=== PATIENT | male | born 1960 | race Caucasian/White ===

== ENCOUNTER 2017-09-24 15:13 | Emergency (ER) | payer BC ==
[~2017-09-24] VITALS: Ht 167.6 cm; Wt 110.0 kg
[2017-09-24 15:21] VITALS: TEMP 37.1; Ht 167.6 cm; Wt 110.0 kg
[2017-09-24] MEDS ORDERED: SODIUM CHLORIDE 0.9% 1000ML 1,000 ML IV STA (15:28)
--- NOTE | 2017-09-24 15:29 | EMERGENCY ROOM VISIT NOTE ---
History Report prepared by Sami: Alena Schmitz Under the Supervision of: Dr. Radha Miller D.O. First contact with patient: 15:12 Stated Complaint: MHID History of Present Illness The patient is a 55 year old male who presents to the Emergency Room via EMS from [facility]. Per EMS, the patient seemed "out of sorts" today. The patient states he is having lower back pain but states this is a chronic issue. He notes he has had 2 surgeries on his lower back. He states he used to use a Fentanyl patch and would have to put a new one on after 3 days. He reports he also used to use oxycodone for pain. The patient denies nausea, vomiting, diarrhea, or fevers. He denies suicidal ideations. Patient denies any trauma or injury. Denies any recent illness. Per EMS staff at the facility stated patient became abruptly agitated today for no apparent reason. They attempted to medicate the patient there and the agitation continued and eventually escalated at which point they called 911. Per EMS they give the patient a total of 20 mg of Valium and 0.1 mg of clonidine prior to her arrival. I gave the can cleaner orders for ketamine prior to transport. Source of History: patient, EMS History Limited By: AMS Position: back (lower) Associated Symptoms: No fevers, No nausea, No vomiting, No diarrhea Review of Systems ROS limited secondary to patient's mental status. Past Medical & Surgical Medical Problems: (1) Back pain Family History Unobtainable secondary to patient's mental status. Social History Smoking Status: Former Smoker Current/Historical Medications Scheduled Canagliflozin (Invokana), 300 MG PO DAILY Celecoxib (Celebrex), 1 CAP PO BID Duloxetine Hcl (Cymbalta), 60 MG PO BID Folic Acid (Folvite), 1 MG PO DAILY Gabapentin (Neurontin), 1,200 MG PO BID Glyburide (Micronase), 5 MG PO BID Metformin Hcl (Glucophage), 1,000 MG PO BID Metoprolol Tartrate (Lopressor) (Lopressor), 50 MG PO BID Multivitamin (Multivitamin), 1 TAB PO DAILY Tamsulosin Hcl (Flomax), 0.4 MG PO BID Thiamine Hcl (Vitamin B-1), 100 MG PO DAILY Scheduled PRN Acetaminophen Tab (Tylenol), 650 MG PO QID PRN for Headache or Pain Aluminum/Magnesium/Simeth (Maalox Max Susp), 30 ML PO TID PRN for GI Upset Clonidine Hcl (Catapres), 0.1 MG PO BID PRN for Anxiety Hydroxyzine Pamoate (Vistaril), 50 MG PO TID PRN for Anxiety Loperamide Hcl (Imodium), 2 MG PO UD PRN for loose stools Magnesium Hydroxide (Milk Of Magnesia), 30 ML PO DAILY PRN for Constipation Melatonin (Melatonin Maximum Strengt), 1 TAB PO HS PRN for Sleep Methocarbamol (Robaxin), 750 MG PO TID PRN for Pain Naloxone HCl (Naloxone HCl), 0.4 MG IM UD PRN for sedation Allergies Coded Allergies: Penicillins (Verified Allergy, Unknown, unk, 09/24/17) Physical Exam Vital Signs Date Time Temp Pulse Resp B/P (MAP) Pulse Ox O2 Delivery O2 Flow Rate FiO2 09/24/17 22:50 72 20 118/77 96 Room Air 09/24/17 22:01 72 118/77 97 Room Air 09/24/17 21:31 71 17 113/91 94 Room Air 09/24/17 21:06 75 19 95 Room Air 09/24/17 21:01 70 16 109/68 97 Room Air 09/24/17 20:48 84 116/67 97 Room Air 09/24/17 20:00 77 17 99 Room Air 09/24/17 19:30 72 14 97 Room Air 09/24/17 19:13 66 09/24/17 19:00 71 13 96 Room Air 09/24/17 18:30 77 23 97 Room Air 09/24/17 18:00 75 20 96 Room Air 09/24/17 17:22 74 20 113/67 95 Room Air 09/24/17 16:30 74 20 123/65 99 Room Air 09/24/17 15:30 84 09/24/17 15:21 37.1 85 20 123/75 97 Room Air Physical Exam GENERAL: alert, well appearing, well nourished, mildly agitated, non-toxic EYE EXAM: normal conjunctiva, PERRL and EOM's grossly intact OROPHARYNX: no exudate, no erythema, lips, buccal mucosa, and tongue normal and mucous membranes are very dry. NECK: supple, no nuchal rigidity, no adenopathy, non-tender LUNGS: Diminished breath sounds, no wheezes, rhonchi, or rales. Normal chest wall mechanics. HEART: no murmurs, S1 normal and S2 normal ABDOMEN: abdomen soft, non-tender, normo-active bowel sounds, no masses, no rebound or guarding. BACK: Back is symmetrical on inspection and there is no deformity, no midline tenderness, no CVA tenderness. SKIN: no rashes and no bruising UPPER EXTREMITIES: upper extremities are grossly normal. LOWER EXTREMITIES: No pitting edema. NEURO EXAM: Normal sensorium, cranial nerves II-XII grossly intact, normal speech, no gross weakness of arms, no gross weakness of legs. No facial droop. No ataxia. Patient is mildly agitated, occasional nonsensical speech, slight flight of ideas. Patient is cooperative. Medical Decision & Procedures ER Provider Diagnostic Interpretation: Radiology results have been interpreted by the radiologist and reviewed by me. HEAD WITHOUT CONTRAST (CT) CT DOSE: 663.41 mGy.cm HISTORY: Mental status change delirium TECHNIQUE: Multiaxial CT images of the head were performed without the use of intravenous contrast. A dose lowering technique was utilized adhering to the principles of ALARA. Comparison: None. Findings: The paranasal sinuses and mastoid air cells are clear. The calvarium and skull base are intact. The ventricles and sulci are within normal limits. There is no mass, hematoma, midline shift, or acute infarct. Impression: No acute intracranial abnormality. The above report was generated using voice recognition software. It may contain grammatical, syntax or spelling errors. Electronically signed by: Vikas Bacon M.D. 09/24/2017 4:04 PM Dictated Date/Time: 09/24/2017 4:03 PM ABDOMEN 2VIEW W/PA CHEST RTN CLINICAL HISTORY: ams pain COMPARISON STUDY: No previous studies for comparison. FINDINGS: The soft tissues, psoas shadows, renal outlines and intestinal gas pattern appear normal. There is no evidence for bowel obstruction. There is no evidence for free intraperitoneal air. No abnormal abdominal calcifications are seen. A frontal view of the chest was performed and is unremarkable. IMPRESSION: Normal study. The above report was generated using voice recognition software. It may contain grammatical, syntax or spelling errors. Electronically signed by: Vikas Bacon M.D. 09/24/2017 4:34 PM Dictated Date/Time: 09/24/2017 4:34 PM Laboratory Results 09/24/17 15:44 Red Blood Count 4.57, Mean Corpuscular Volume 91.9, Mean Corpuscular Hemoglobin 31.7, Mean Corpuscular Hemoglobin Concent 34.5, Mean Platelet Volume 10.4, Neutrophils (%) (Auto) 53.3, Lymphocytes (%) (Auto) 33.2, Monocytes (%) (Auto) 9.2, Eosinophils (%) (Auto) 3.2, Basophils (%) (Auto) 0.7, Neutrophils # (Auto) 3.00, Lymphocytes # (Auto) 1.87, Monocytes # (Auto) 0.52, Eosinophils # (Auto) 0.18, Basophils # (Auto) 0.04 09/24/17 15:44 Test 09/24/17 15:40 09/24/17 15:44 Urine Color YELLOW Urine Appearance CLEAR (CLEAR) Urine pH 6.5 (4.5-7.5) Urine Specific [place] 1.014 (1.000-1.030) Urine Protein NEG (NEG) Urine Glucose (UA) 3+ (NEG) Urine Ketones NEG (NEG) Urine Occult Blood NEG (NEG) Urine Nitrite NEG (NEG) Urine Bilirubin NEG (NEG) Urine Urobilinogen NEG (NEG) Urine Leukocyte Esterase NEG (NEG) Urine Opiates Screen NEG (NEG) Urine Methadone, Qualitative NEG (NEG) Urine Barbiturates NEG (NEG) Urine Phencyclidine (PCP) Level NEG (NEG) Ur Amphetamine/Methamphetamine NEG (NEG) MDMA (Ecstasy) Screen NEG (NEG) Urine Benzodiazepines Screen POS (NEG) Urine Cocaine Metabolite NEG (NEG) Urine Marijuana (THC) NEG (NEG) White Blood Count 5.63 K/uL (4.8-10.8) Red Blood Count 4.57 M/uL (4.7-6.1) Hemoglobin 14.5 g/dL (14.0-18.0) Hematocrit 42.0 % (42-52) Mean Corpuscular Volume 91.9 fL (80-100) Mean Corpuscular Hemoglobin 31.7 pg (25-34) Mean Corpuscular Hemoglobin Concent 34.5 g/dl (32-36) Platelet Count 194 K/uL (130-400) Mean Platelet Volume 10.4 fL (7.4-10.4) Neutrophils (%) (Auto) 53.3 % Lymphocytes (%) (Auto) 33.2 % Monocytes (%) (Auto) 9.2 % Eosinophils (%) (Auto) 3.2 % Basophils (%) (Auto) 0.7 % Neutrophils # (Auto) 3.00 K/uL (1.4-6.5) Lymphocytes # (Auto) 1.87 K/uL (1.2-3.4) Monocytes # (Auto) 0.52 K/uL (0.11-0.59) Eosinophils # (Auto) 0.18 K/uL (0-0.5) Basophils # (Auto) 0.04 K/uL (0-0.2) RDW Standard Deviation 41.6 fL (36.4-46.3) RDW Coefficient of Variation 12.4 % (11.5-14.5) Immature Granulocyte % (Auto) 0.4 % Immature Granulocyte # (Auto) 0.02 K/uL (0.00-0.02) Prothrombin Time 9.7 SECONDS (9.0-12.0) Prothromb Time International Ratio 0.9 (0.9-1.1) Anion Gap 7.0 mmol/L (3-11) Est Creatinine Clear Calc Drug Dose 98.9 ml/min Estimated GFR () 100.7 Estimated GFR (Non- 86.9 BUN/Creatinine Ratio 13.0 (10-20) Calcium Level 8.8 mg/dl (8.5-10.1) Magnesium Level 2.1 mg/dl (1.8-2.4) Total Bilirubin 0.5 mg/dl (0.2-1) Aspartate Amino Transf (AST/SGOT) 19 U/L (15-37) Alanine Aminotransferase (ALT/SGPT) 29 U/L (12-78) Alkaline Phosphatase 69 U/L (45-117) Ammonia 18.0 umol/L (11-32) Troponin I < 0.015 ng/ml (0-0.045) Total Protein 7.2 gm/dl (6.4-8.2) Albumin 3.5 gm/dl (3.4-5.0) Globulin 3.7 gm/dl (2.5-4.0) Albumin/Globulin Ratio 0.9 (0.9-2) Lipase 193 U/L (73-393) Thyroid Stimulating Hormone (TSH) 1.990 uIu/ml (0.300-4.500) Ethyl Alcohol mg/dL < 3.0 mg/dl (0-3) Laboratory results per my review. Medications Administered Medications (Trade) Dose Ordered Sig/Wilmer Route Start Time Stop Time Status Last Admin Dose Admin Sodium Chloride 1,000 ml @ 999 mls/hr Q1H1M STAT IV 09/24/17 15:28 09/24/17 16:28 DC 09/24/17 16:30 999 MLS/HR Celecoxib (CeleBREX CAP) 100 mg BID STAT PO 09/24/17 20:59 09/24/17 21:01 DC 09/24/17 21:19 100 MG Duloxetine HCl (Cymbalta Cap) 60 mg QAM STAT PO 09/24/17 20:59 09/24/17 21:01 DC 09/24/17 21:19 60 MG Metformin HCl (Glucophage Tab) 1,000 mg DAILYBD STAT PO 09/24/17 20:59 09/24/17 21:01 DC 09/24/17 21:19 1,000 MG Glyburide (MICRONase TAB) 5 mg NOW ONCE PO 09/24/17 21:00 09/24/17 21:01 DC 09/24/17 21:17 5 MG Tamsulosin HCl (Flomax Cap) 0.4 mg NOW ONCE PO 09/24/17 21:00 09/24/17 21:01 DC 09/24/17 21:17 0.4 MG Metoprolol Tartrate (Lopressor Tab) 50 mg NOW STAT PO 09/24/17 20:59 09/24/17 21:01 DC 09/24/17 21:17 50 MG Gabapentin (Neurontin Tab) 1,200 mg NOW STAT PO 09/24/17 20:59 09/24/17 21:01 DC 09/24/17 21:18 1,200 MG Diazepam (Valium Tab) 5 mg NOW STAT PO 09/24/17 21:23 09/24/17 21:24 DC 09/24/17 21:26 5 MG Hydroxyzine HCl (Vistaril Tab) 50 mg NOW STAT PO 09/24/17 21:56 09/24/17 21:58 DC 09/24/17 22:00 50 MG ECG Per My Interpretation Indication: other (AMS) Rate (beats per minute): 80 Rhythm: sinus rhythm Findings: no acute ischemic change, no ectopy, other (normal axis, normal intervals) ED Course 151: The patient was evaluated in room B11B. A complete history and physical exam was performed. 152: Ordered Sodium Chloride 1000 ml @ 999 mls/hr IV. 180: The patient is awake, alert, oriented, and answering questions at this time. The patient believes he may have had a panic attack. 1899: Patient seen and evaluated here by Lasha, psychiatric bottle caser. Per patient's description to Sameer has had similar prior episodes. Patient agreeable with plan for additional rehab. Medical Decision Differential diagnosis: Etiologies such as toxicologic, infection, hypoglycemia, electrolyte abnormalities, cardiac sources, intracerebral event, neurologic, as well as others were entertained. Labs and imaging here reassuring and patient's sensorium cleared to what I expect is now baseline as he is awake and alert and oriented. No evidence of acute infectious etiology, I do not suspect overdose or other toxidrome. Benzodiazepines found in urine drug screen likely secondary to those administered by the facility prior to transportation to the ER. Patient denies any SI or HI. Patient here once his sensorium cleared admitted to ongoing narcotic abuse secondary to chronic back pain. Patient has been self treating with additional medications he bought on the street while he is attempting to complete rehab for narcotic abuse. Based on patient's evaluation and observation time in the emergency room, I did suspect occult intentional or accidental ingestion, no evidence of an ongoing toxidrome, no evidence of CVA, ACS, dysrhythmia. No evidence of acute metabolic abnormality, renal failure suspect occult infectious etiology, no evidence of bacteremia/sepsis. Patient re-evaluated several times. Patient signed out to Dr. Sathya Colby, psychiatric bottle caser was discussing with [facility] for possible return to their program. Medication Reconcilliation Current Medication List: was personally reviewed by me Blood Pressure Screening Patient's blood pressure: Normal blood pressure Impression Primary Impression: Altered mental status Additional Impressions: Substance abuse Anxiety Scribe Attestation The scribe's documentation has been prepared under my direction and personally reviewed by me in its entirety. I confirm that the note above accurately reflects all work, treatment, procedures, and medical decision making performed by me. Problem Qualifiers Primary Impression: Altered mental status Altered mental status type: unspecified Qualified Codes: R41.82 - Altered mental status, unspecified
[2017-09-24 15:56] LABS: BASO % 0.7 %; BASO ABS # 0.04 K/uL (0-0.2); EOS % 3.2 %; EOS ABS # 0.18 K/uL (0-0.5); HEMOGLOBIN 14.5 g/dL (14.0-18.0); IG# 0.02 K/uL (0.00-0.02); LYMPH % 33.2 %; LYMPH ABS # 1.87 K/uL (1.2-3.4); MEAN CELL VOLUME 91.9 fL (80-100); MEAN CORPUSCULAR HEMOGLOBIN 31.7 pg (25-34); MEAN CORPUSCULAR HGB CONC 34.5 g/dl (32-36); MEAN PLATELET VOLUME 10.4 fL (7.4-10.4); MONO % 9.2 %; MONO ABS # 0.52 K/uL (0.11-0.59); NEUT % 53.3 %; PLATELET COUNT 194 K/uL (130-400); RED CELL DISTRIBUTION WIDTH CV 12.4 % (11.5-14.5); RED CELL DISTRIBUTION WIDTH SD 41.6 fL (36.4-46.3); WHITE BLOOD COUNT 5.63 K/uL (4.8-10.8)
[2017-09-24 16:03] LABS: INR 0.9 (0.9-1.1)
--- NOTE | 2017-09-24 16:05 | DIAGNOSTIC IMAGING REPORT ---
HEAD WITHOUT CONTRAST (CT) CT DOSE: 663.41 mGy.cm HISTORY: Mental status change delirium TECHNIQUE: Multiaxial CT images of the head were performed without the use of intravenous contrast. A dose lowering technique was utilized adhering to the principles of ALARA. Comparison: None. Findings: The paranasal sinuses and mastoid air cells are clear. The calvarium and skull base are intact. The ventricles and sulci are within normal limits. There is no mass, hematoma, midline shift, or acute infarct. Impression: No acute intracranial abnormality. The above report was generated using voice recognition software. It may contain grammatical, syntax or spelling errors. Electronically signed by: Vikas Bacon M.D. 09/24/2017 4:04 PM Dictated Date/Time: 09/24/2017 4:03 PM
[2017-09-24] MEDS ORDERED: METO50TA16 PO (16:21)
[2017-09-24] MEDS ORDERED: GLYB5TAB8 PO (16:21)
[2017-09-24] MEDS ORDERED: HYDR50CA2 PO (16:21)
[2017-09-24] MEDS ORDERED: TAMS0.4C38 PO (16:21)
[2017-09-24] MEDS ORDERED: DULO60CA44 PO (16:21)
[2017-09-24] MEDS ORDERED: CLB100 PO (16:21)
[2017-09-24] MEDS ORDERED: CANA1TAB3 PO (16:21)
[2017-09-24] MEDS ORDERED: METH-307 PO (16:21)
[2017-09-24] MEDS ORDERED: MULT-506 PO (16:21)
[2017-09-24] MEDS ORDERED: ALUMSUS2 PO (16:21)
[2017-09-24] MEDS ORDERED: ACET-1693 PO (16:21)
[2017-09-24] MEDS ORDERED: IMD/2 PO (16:21)
[2017-09-24] MEDS ORDERED: THIA100T10 PO (16:21)
[2017-09-24] MEDS ORDERED: MELATAB2 PO (16:21)
[2017-09-24] MEDS ORDERED: CTP/1 PO (16:21)
[2017-09-24] MEDS ORDERED: METF-384 PO (16:21)
[2017-09-24] MEDS ORDERED: GABA-1220 PO (16:21)
[2017-09-24] MEDS ORDERED: FOLI1TAB8 PO (16:21)
[2017-09-24 16:25] LABS: ALBUMIN 3.5 gm/dl (3.4-5.0); ALKALINE PHOSPHATASE 69 U/L (45-117); ALT/SGPT 29 U/L (12-78); AST/SGOT 19 U/L (15-37); BLOOD UREA NITROGEN 13 mg/dl (7-18); CALCIUM 8.8 mg/dl (8.5-10.1); CARBON DIOXIDE 26 mmol/L (21-32); CREATININE 0.97 mg/dl (0.60-1.40); GLUCOSE 102 mg/dl (70-99); LIPASE 193 U/L (73-393); POTASSIUM 4.2 mmol/L (3.5-5.1); SODIUM 137 mmol/L (136-145); TOTAL PROTEIN 7.2 gm/dl (6.4-8.2)
[2017-09-24] MEDS ORDERED: NLXI4X IM (16:34)
[2017-09-24] MEDS ORDERED: MOML PO (16:34)
--- NOTE | 2017-09-24 16:36 | DIAGNOSTIC IMAGING REPORT ---
ABDOMEN 2VIEW W/PA CHEST RTN CLINICAL HISTORY: ams pain COMPARISON STUDY: No previous studies for comparison. FINDINGS: The soft tissues, psoas shadows, renal outlines and intestinal gas pattern appear normal. There is no evidence for bowel obstruction. There is no evidence for free intraperitoneal air. No abnormal abdominal calcifications are seen. A frontal view of the chest was performed and is unremarkable. IMPRESSION: Normal study. The above report was generated using voice recognition software. It may contain grammatical, syntax or spelling errors. Electronically signed by: Vikas Bacon M.D. 09/24/2017 4:34 PM Dictated Date/Time: 09/24/2017 4:34 PM
[2017-09-24] MEDS ORDERED: METFORMIN HCL 500 MG TAB PO STA (20:59)
[2017-09-24] MEDS ORDERED: DULOXETINE HCL 60 MG CAP PO STA (20:59)
[2017-09-24] MEDS ORDERED: CeleBREX 100 MG CAP PO STA (20:59)
[2017-09-24] MEDS ORDERED: GABAPENTIN 600 MG TAB PO STA (20:59)
[2017-09-24] MEDS ORDERED: METOPROLOL TARTRATE 50 MG TAB PO STA (20:59)
[2017-09-24] MEDS ORDERED: TAMSULOSIN HCL 0.4 MG CAP PO ONE (21:00)
[2017-09-24] MEDS ORDERED: DIAZEPAM 5MG TAB PO STA (21:23)
[2017-09-24] MEDS ORDERED: hydrOXYzine HCL 25 MG TAB PO STA (21:56)
--- NOTE | 2017-09-24 22:29 | EMERGENCY ROOM VISIT NOTE ---
ED Visit Note First contact with patient: 22:27 I received this patient at change of shift signout from Dr. brooks. Please see her note for initial history and physical. The patient is at an inpatient rehab facility for detox. The patient had some sort of episode where he was confused and acting out. They were very concerned that this could represent some underlying medical condition. The patient was treated with medications for his acute agitated state. He was reevaluated multiple times. The patient was medically cleared in the emergency department. On final reevaluation the patient was awake and alert and was calm. He was treated with his evening medications by myself. I discussed his case with the emergency department mental health case coordinator. The patient is to be transferred back to [facility]. He was encouraged to continue all medications only as prescribed. He was also encouraged to follow-up with his therapist as well as primary care physician as soon as possible but return to the emergency department immediately if symptoms change worsen or the need arises.
[2017-09-24 22:50] VITALS: BP 118/77; PULSE 72; O2SAT 96
== END 2017-09-24 22:54 | disposition home or self-care (01) ==
LOC: EDBD 15:13 → C.EDB 15:19
DX: R41.82 Altered mental status, unspecified (principal); F11.10 Opioid abuse, uncomplicated; F41.9 Anxiety disorder, unspecified; M54.9 Dorsalgia, unspecified; Z87.891 Personal history of nicotine dependence; Z88.0 Allergy status to penicillin